=== PATIENT | female | born 1970 | race Caucasian/White ===

== ENCOUNTER → 2022-11-23 09:53 | Outpatient (BNVA) | payer OTHER, SELFPAY | PROVIDERS: PCP Family Medicine; Visit Provider Internal Medicine | DX: L40.9 Psoriasis, unspecified (principal); M25.60 Stiffness of unspecified joint, not elsewhere classified; M25.50 Pain in unspecified joint | CPT/HCPCS: 36415; 72202; 73120; 73522; 73620; 80053; 82306; 82550; 82784; 83516; 83735; 84100; 84550; 85025; 85651; 86140; 86160; 86162; 86200; 86235; 86255; 86376; 86431; 86704; 86803; 87340 ==

== ENCOUNTER 2023-06-14 16:11 | Emergency (ER) | payer OTHER, SELFPAY ==
[2023-06-14 16:40] VITALS: BMI 25.4
[2023-06-14 16:44] VITALS: BP 152/79; PULSE 98; RESP 17; TEMP 36.7; O2SAT 97
--- NOTE | 2023-06-14 17:37 | XRR_ITS ---
PROCEDURE INFORMATION: Exam: XR Right Foot Exam date and time: 06/14/2023 5:48 PM Age: 52 years old Clinical indication: Pain; Foot; Right; Additional info: Trauma, stepped on nails TECHNIQUE: Imaging protocol: Radiologic exam of the right foot. Views: 3 or more views. COMPARISON: No relevant prior studies available. FINDINGS: Bones/joints: Distal Achilles tendon degenerative calcification. Soft tissues: Normal. XR/XR foot RT min 3V* [id number] IMPRESSION: 1. Negative for radiodense foreign body 2. Distal Achilles tendon degenerative calcification.
--- NOTE | 2023-06-14 17:37 | XRR_ITS ---
PROCEDURE INFORMATION: Exam: XR Left Foot Exam date and time: 06/14/2023 5:47 PM Age: 52 years old Clinical indication: Pain; Foot; Left; Additional info: Trauma, stepped on nails TECHNIQUE: Imaging protocol: Radiologic exam of the left foot. Views: 3 or more views. COMPARISON: No relevant prior studies available. FINDINGS: Bones/joints: Normal. Soft tissues: Normal. XR/XR foot LT min 3V* [id number] IMPRESSION: No acute findings.
[2023-06-14] MEDS: tetanus-dipt-pertussis 0.5 mL SDV IM (17:45)
--- NOTE | 2023-06-14 17:46 | ED_ITS ---
HPI - Extremity Problem General: Chief complaint: Extremity Injury, Lower Stated complaint: stepped on multiple nails, both feet Time Seen by Provider: 06/14/23 17:36 Source: patient Mode of arrival: ambulatory History of Present Illness: 52-year-old female presents emergency room after stepping on nails of both feet while wearing shoes. She had gone out to do some work in the yard and accidentally stepped on a board when she stepped back to get away from that board she stepped on another board both of which had nails in. She thinks her last tetanus shot was sometime in her late teen years no other injury or complaints Complaint: extremity pain Onset (ago): minute(s) Pain Consistency: constant Location: left, right and lower extremity Quality: sharp Radiation: none Exacerbating factors: walking Associated symptoms: Deny arthralgias, myalgias or short of breath PFS ED PFSH: Family History Father Diabetes High cholesterol Kidney disorder Physical Exam Extremity: OTHER: Puncture wounds bilaterally and soles of the feet no drainage no evidence of foreign body no lacerations Course Vital Signs: Vital signs: Vital Signs Temperature 98.0 F 06/14/23 16:44 Pulse Rate 98 06/14/23 16:44 Respiratory Rate 17 06/14/23 16:44 Blood Pressure 152/79 06/14/23 16:44 Pulse Oximetry 97 06/14/23 16:44 Oxygen Delivery Me thod Room Air 06/14/23 16:44 MDM - Extremity (Nontraumatic) Medical Decision Making X-rays show no retained foreign bodies in the soft tissue of the foot feet. Patient given tetanus wounds cleansed and dressed apply topical antibiotic ointment once twice daily for she was wearing shoes which she fibulotalar will put her on 5 days of prophylactic antibiotics Augmentin 875 twice daily. Return if has signs of infection. Tylenol or Profen for pain. Lab Data Radiology Impressions Foot X-Ray 06/14/23 17:37 IMPRESSION: No acute findings. Foot X-Ray 06/14/23 17:37 IMPRESSION: 1. Negative for radiodense foreign body 2. Distal Achilles tendon degenerative calcification. Discharge Plan Discharge Patient Disposition: Home Clinical Impression: Puncture wound of foot, left, Puncture wound of foot, right Condition: Stable Prescriptions: New amoxicillin-pot clavulanate 875-125 mg tablet 1 tab PO BID Qty: 10 0RF No Action diclofenac sodium [Arthritis Pain (diclofenac)] 1 % gel 4 g topical QID Qty: 100 2RF Rx Instructions: apply to single knee, ankle, foot; for foot includes sole/toes/top of foot Discharge Orders: Discharge ED (Routine); Ordered 06/14/23 Ordered By: Vincenzo Augustin Referrals: Sofia Peng DO [Primary Care Provider] - Discharge Diet: Usual diet Discharge Activity: Increase activity as tolerated Patient Instructions: Opioid Safety, Pain Management Activity Restrictions/Additional Instructions: You are seen today for puncture wounds of both feet. Recommend that you clean the wounds 1-2 times per day and apply a Band-Aid. You can also apply [id number] topical antibiotic ointment. Your tetanus was updated. You were given antibiotics to take 1 pill twice a day for 5 days if you have any dr ed or change in symptoms or concerning symptoms recheck. 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
[2023-06-14] MEDS: acetaminophen 500 mg Tablet 1000 MG PO (17:47)
== END 2023-06-14 18:46 | disposition home or self-care (01) ==
PROVIDERS: Emergency Provider Family Medicine; PCP Family Medicine
DX: S91.331A Puncture wound without foreign body, right foot, initial encounter (principal); S91.332A Puncture wound without foreign body, left foot, initial encounter; W45.0XXA Nail entering through skin, initial encounter; Z23 Encounter for immunization
CPT/HCPCS: 73630; 90471; 90715; 99283

== ENCOUNTER 2025-03-03 08:33 | Emergency (ER) | payer OTHER, SELFPAY ==
--- NOTE | 2025-03-03 08:40 | XRR_ITS ---
PROCEDURE INFORMATION: Exam: XR Chest Exam date and time: 03/03/2025 8:54 AM Age: 54 years old Clinical indication: Cough; Of acid reflux during the night. Patient states she believes she swallowed her reflux. patient states she does not have full capacity of my lungs. patient states she has no energy but has only been nibbling on toast. patent airway, unlabored respirations, and appropriate color. ; Additional info: Aspiration/cough TECHNIQUE: Imaging protocol: Radiologic exam of the chest. Views: 1 view. COMPARISON: No relevant prior studies available. FINDINGS: Lungs: There is scattered peribronchial infiltrate within the right mid-lower lung zone which in view of patient's history may be secondary to aspiration pneumonitis. Left lung field is relatively clear. Pleural spaces: Unremarkable. No pleural effusion. No pneumothorax. Heart/Mediastinum: Unremarkable. No cardiomegaly. Bones/joints: No acute bony abnormalities detected. XR/XR chest 1V portable [id number] IMPRESSION: Patchy infiltrates right mid lower lung zone that may be infectious in nature or secondary to aspiration pneumonitis.
[2025-03-03 08:41] VITALS: BP 167/86; PULSE 101; RESP 16; O2SAT 96; BMI 25.8
--- NOTE | 2025-03-03 09:00 | W.ED.GENADLT ---
HPI - General Adult General: Chief complaint: General Medical Stated complaint: choked on acid reflects Time Seen by Provider: 03/03/25 08:38 History of Present Illness: 54-year-old female who presents to the emergency room after what she describes as a episode of acid reflux she believes she may have inhaled some of the last night. The episode woke her up from sleep she had a paroxysmal cough after this. She denies any hematemesis or coffee-ground so she is not typically on any prescription medications. She does not take anything for reflux at home. Associated symptoms: Reports dyspnea; Deny chest pain or rash Related Data Previous Rx's ?Medication ?Instructions ?Recorded amoxicillin 875 mg-potassium 1 tab PO BID #20 tabs 03/03/25 clavulanate 125 mg tablet pantoprazole 40 mg tablet,delayed 40 mg PO DAILY 4 weeks #30 tabs 03/03/25 release Allergies Allergy/AdvReac Type Severity Reaction Status Date / Time hayfever seasonal Allergy Mild ADR-Cough Uncoded 12/27/22 08:50 Review of Systems Const: Denies: fever(s) or chills Card: Denies: chest pain Resp: Reports: dyspnea, non-productive cough and chest congestion GI: Denies: abdominal pain : Denies: dysuria, urinary frequency or urinary urgency Musc: Denies: neck pain or back pain Skin/Breast: Denies: rash PFS ED PFSH: Medical History (Updated 03/03/25 @ 10:28 by Vincenzo Augustin DO) Rheumatic arteritis Surgical History (Updated 03/03/25 @ 09:08 by Vincenzo Augustin DO) H/O breast augmentation Family History Father Diabetes High cholesterol Kidney disorder Physical Exam Const: GENERAL APPEARANCE: cooperative ORIENTATION/CONSCIOUSNESS: Yes awake, Yes oriented to person, Yes oriented to place and Yes oriented to time HENMT: COMMON NORMALS: normocephalic, atraumatic and hearing grossly normal bilaterally HEAD & SCALP: normocephalic and atraumatic Resp: COMMON NORMALS: normal respiratory effort, No retractions, No use of accessory muscles and clear to auscultation bilaterally AUSCULTATION: clear to auscultation bilaterally Cardio: COMMON NORMALS: regular rate, regular rhythm and No murmurs present (Cardio) RATE: regular rate RHYTHM: regular rhythm GI: COMMON NORMALS: Soft to palpation and No hepatosplenomegaly present AUSCULTATION: Yes normoactive bowel sounds PALPATION: Yes Soft to palpation, No Tenderness to palpation present (GI), No Guarding due to palpation present (GI) and Yes No hepatosplenomegaly present Extremity: COMMON NORMALS: normal to inspection, capillary refill normal, no clubbing, cyanosis or edema, no calf tenderness and no pedal edema Neuro: SENSORIUM/ORIENTATION: Yes oriented to person, Yes oriented to place and Yes oriented to time Skin: COMMON NORMALS: no rashes or lesions noted GENERAL SKIN EXAM: no rashes or lesions noted Course Vital Signs: Vital signs: Vital Signs Pulse Rate 101 H 03/03/25 08:41 Respiratory Rate 16 03/03/25 08:41 Blood Pressure 167/86 03/03/25 08:41 Pulse Oximetry 96 03/03/25 08:41 Oxygen Delivery Me thod Room Air 03/03/25 08:41 MDM - General Adult Medical Decision Making Chest x-ray shows aspiration pneumonia. Vital signs are otherwise stable she is little bit tachycardic but her sats are normal. Will start patient Augmentin 875 1 p.o. twice daily. In addition to this will start on pantoprazole 40 daily. Have her follow-up with her primary care doctor next 1 to 2 days sooner if she has worsening problems or if has sudden worsening return to the emergency room. Differential Diagnosis Pneumonia pneumothorax aspiration GERD Medical Records I reviewed the patient's medical records. Lab Data 03/03/25 08:53 03/03/25 08:53 Radiology Impressions Chest X-Ray 03/03/25 08:40 IMPRESSION: Patchy infiltrates right mid lower lung zone that may be infectious in nature or secondary to aspiration pneumonitis. Laboratory Results WBC 10.38 10^3/uL (3.29-11.43) 03/03/25 08:53 RBC 4.49 10^6/uL (3.85-5.65) 03/03/25 08:53 Hgb 12.90 g/dL (11.27-16.99) 03/03/25 08:53 Hct 40.1 % (36-47) 03/03/25 08:53 MCV 89.3 fl (85-98) 03/03/25 08:53 MCH 28.7 pg (27-33) 03/03/25 08:53 MCHC 32.2 g/dL (30-55) 03/03/25 08:53 RDW 12.2 % (12.1-15.1) 03/03/25 08:53 Plt Count 227 10^3/cmm (157-399) 03/03/25 08:53 MPV 11.3 fL (7.4-10.4) H 03/03/25 08:53 Neut % (Auto) 89.4 % 03/03/25 08:53 Lymph % (Auto) 5.3 % 03/03/25 08:53 [place] % (Auto) 4.8 % 03/03/25 08:53 Eos % (Auto) 0.0 % 03/03/25 08:53 Baso % (Auto) 0.2 % 03/03/25 08:53 Neut # (Auto) 9.28 10^3/uL (1.8-7.7) H 03/03/25 08:53 Lymph # (Auto) 0.6 10^3/uL (0.8-4.8) L 03/03/25 08:53 [place] # (Auto) 0.5 10^3/uL (0.2-0.9) 03/03/25 08:53 Eos # (Auto) 0.0 10^3/uL (0.0-0.8) 03/03/25 08:53 Baso # (Auto) 0.0 10^3/uL (0.0-0.1) 03/03/25 08:53 Nucleated RBC % (auto) 0 % 03/03/25 08:53 Nucleated RBCs # 0.0 /100WBC 03/03/25 08:53 Sodium 139 mmol/L (136-145) 03/03/25 08:53 Potassium 3.8 mmol/L (3.5-5.1) 03/03/25 08:53 Chloride 105 mmol/L (98-107) 03/03/25 08:53 Carbon Dioxide 22 mmol/L (22-29) 03/03/25 08:53 Anion Gap 15.8 (5-19) 03/03/25 08:53 BUN 15 mg/dL (6-20) 03/03/25 08:53 Creatinine 0.7 mg/dL (0.5-0.9) 03/03/25 08:53 GFR Calculation 86.6 mL/min (90-130) L 03/03/25 08:53 Glucose 128 mg/dL (65-115) H 03/03/25 08:53 Calculated Osmolality 290 mOsm/kg (285-295) 03/03/25 08:53 Calcium 9.0 mg/dL (8.5-10.5) 03/03/25 08:53 Total Bilirubin 0.8 mg/dL (0.15-1.2) 03/03/25 08:53 AST 18 U/L (0-32) 03/03/25 08:53 ALT 23 U/L (0-33) 03/03/25 08:53 Alkaline Phosphatase 99 U/L (35-105) 03/03/25 08:53 Total Protein 6.9 g/dL (6.6-8.7) 03/03/25 08:53 Albumin 4.3 g/dL (3.5-5.2) 03/03/25 08:53 Globulin 2.6 g/dL (1.3-4.6) 03/03/25 08:53 All radiology interpretation(s) finalized by discharge Discharge Plan Discharge Patient Disposition: Home Clinical Impression: Aspiration pneumonia, GERD (gastroesophageal reflux disease) Condition: Stable Prescriptions: New amoxicillin-pot clavulanate 875-125 mg tablet 1 tab PO BID Qty: 20 0RF pantoprazole 40 mg tablet,delayed release (DR/EC) 40 mg PO DAILY 28 Days Qty: 30 0RF Discharge Orders: Discharge ED (Routine); Ordered 03/03/25 Ordered By: Vincenzo Augustin Referrals: Sofia Peng DO [Primary Care Provider] - Discharge Diet: Regular Discharge Activity: Increase activity as tolerated Patient Instructions: Opioid Safety, Pain Management Activity Restrictions/Additional Instructions: Thank you for choosing [facility] for your healthcare needs today. It is very important that you follow up as instructed or that you return to the Emergency Department should you have concerns or if your condition changes or worsens in any way. You were seen in the emergency room after having a significant amount of reflux. Chest x-ray shows you do have an aspiration pneumonia. Your vital signs are stable at this time you do not require admission to the hospital but we will start you on oral antibiotics. Additionally started you on pantoprazole. It is very important for you to follow-up with your doctor in the next 2 to 3 days. If you have any worsening of symptoms or more difficulty breathing return to the emergency room or follow-up with your doctor immediately. Additionally we started you on medications to help control reflux. You should follow-up with your doctor as well regarding your reflux to discuss potentially having a EGD (scope of your stomach). 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
[2025-03-03 09:01] LABS: Basophils % 0.2 %; Hematocrit 40.1 % (36-47); Lymphocytes # 0.6 10^3/uL (0.8-4.8); Lymphocytes % 5.3 %; Mean Corpuscular HGB Conc 32.2 g/dL (30-55); Mean Corpuscular Hemoglobin 28.7 pg (27-33); Mean Corpuscular Volume 89.3 fl (85-98); Mean Platelet Volume 11.3 fL (7.4-10.4); Monocytes # 0.5 10^3/uL (0.2-0.9); Monocytes % 4.8 %; Neutrophils # 9.28 10^3/uL (1.8-7.7); Neutrophils % 89.4 %; Nucleated Red Blood Cells % 0 %; Platelet Count 227 10^3/cmm (157-399); Red Blood Count 4.49 10^6/uL (3.85-5.65); Red Cell Distribution Width 12.2 % (12.1-15.1); White Blood Count 10.38 10^3/uL (3.29-11.43)
[2025-03-03 09:23] LABS: Alanine Aminotransferase 23 U/L (0-33); Albumin Level 4.3 g/dL (3.5-5.2); Alkaline Phosphatase 99 U/L (35-105); Anion Gap 15.8 (5-19); Aspartate Amino Transferase 18 U/L (0-32); Blood Urea Nitrogen 15 mg/dL (6-20); Carbon Dioxide 22 mmol/L (22-29); Chloride 105 mmol/L (98-107); Creatinine Clr Calc Pharmacy 91.5308; Globulin 2.6 g/dL (1.3-4.6); Glomerular Filtration Rate 86.6 mL/min (90-130); Glucose 128 mg/dL (65-115); Osmolality Calculated 290 mOsm/kg (285-295); Potassium 3.8 mmol/L (3.5-5.1); Sodium 139 mmol/L (136-145); Total Bilirubin 0.8 mg/dL (0.15-1.2); Total Protein 6.9 g/dL (6.6-8.7)
== END 2025-03-03 11:00 | disposition home or self-care (01) ==
PROVIDERS: Emergency Provider Family Medicine; PCP Family Medicine
DX: J69.0 Pneumonitis due to inhalation of food and vomit (principal); K21.9 Gastro-esophageal reflux disease without esophagitis
CPT/HCPCS: 36415; 71045; 80053; 85025; 99284